=== PATIENT | female | born 1995 | race Caucasian/White ===

== ENCOUNTER 2017-10-16 16:35 | Emergency (ER) | payer SELFPAY ==
[~2017-10-16] VITALS: Ht 167.6 cm; Wt 104.5 kg
[~2017-10-16 16:35] MED LIST: TYLENOL PM EX-1 EACH PO; [UNRECOGNIZED DRUG - OTHER]
[2017-10-16] MEDS ORDERED: AUGMENTIN 875-1 EAC1 PO (17:29)
[2017-10-16] MEDS ORDERED: NIFEDIPINE (17:35)
[2017-10-16] MEDS ORDERED: CORTISPORIN OTI10 ML OT (18:16)
[2017-10-16 18:18] VITALS: BP 147/94
== END 2017-10-16 18:18 | disposition home or self-care (01) ==
LOC: ED 16:35
DX: H60.93 Unspecified otitis externa, bilateral (principal); F17.200 Nicotine dependence, unspecified, uncomplicated; I10 Essential (primary) hypertension

== ENCOUNTER 2018-03-11 17:55 | Emergency (ER) | payer MEDICAID ==
[~2018-03-11] VITALS: Ht 167.6 cm; Wt 102.7 kg
[~2018-03-11 17:55] MED LIST changes: -QUALITY CHOICE20 M1 PO; -SEPTRA DS 8001 TAB PO
[2018-03-11] MEDS ORDERED: QUALITY CHOICE20 M1 PO (19:48)
[2018-03-11] MEDS ORDERED: SEPTRA DS 8001 TAB PO (19:48)
[2018-03-11 20:00] VITALS: BP 141/91
== END 2018-03-11 20:00 | disposition home or self-care (01) ==
LOC: ED 17:55
DX: O90.89 Other complications of the puerperium, not elsewhere classified (principal); R10.11 Right upper quadrant pain; O86.20 Urinary tract infection following delivery, unspecified; R74.8 Abnormal levels of other serum enzymes

== ENCOUNTER → 2018-03-11 | Outpatient (CLI) | payer MEDICAID ==
[~2018-03-11] MED LIST changes: +AUGMENTIN 875-1 EAC1 PO; +CORTISPORIN OTI10 ML OT; +NIFEDIPINE; +QUALITY CHOICE20 M1 PO; +SEPTRA DS 8001 TAB PO
[2018-03-11 12:05] LABS: EOS # 0.2 (0.04-0.40); EOS % 5.6 % (1.0-5.0); HEMATOCRIT 40.4 % (37.0-47.0); HEMOGLOBIN 12.7 g/dL (12.5-16.0); LYMPH# 1.2 (1.50-4.00); MEAN CELL VOLUME 80 fl (78-100); MEAN CORPUSCULAR HEMOGLOBIN 25 pg (27-31); MEAN CORPUSCULAR HGB CONC 31 g/dL (33-37); MEAN PLATELET VOLUME 11.2 fl (7.4-10.4); MONO # 0.3 (0.20-0.80); NEU # 2.5 (1.40-6.50); PLATELET COUNT 373 K/mm3 (130-400); RED BLOOD COUNT 5.06 M/mm3 (4.10-5.30); RED CELL DISTRIBUTION WIDTH 14.7 % (11.5-14.5); WHITE BLOOD COUNT 4.3 K/mm3 (4.8-10.8)
[2018-03-11 12:11] LABS: ALBUMIN 4.1 g/dL (3.5-5.0); BUN/CREATININE RATIO 12.2 (6.0-26.0); CALCIUM 9.1 mg/dL (8.4-10.2); POTASSIUM 3.7 mmol/L (3.6-5.0); TOTAL BILIRUBIN 4.5 mg/dL (0.2-1.3); TOTAL PROTEIN 8.6 g/dL (6.3-8.2)
[2018-03-11 12:56] LABS: URINE APPEARANCE HAZY; URINE COLOR DARK YELLOW; URINE GLUCOSE NEGATIVE (NEGATIVE); URINE KETONE NEGATIVE (NEGATIVE); URINE PROTEIN(semi-quant) TRACE mg/dL (NEGATIVE)
[2018-03-11 12:57] LABS: URINE BILIRUBIN 3+ (NEGATIVE); URINE BLOOD 250 ery/uL (NEGATIVE); URINE LEUKOCYTE ESTERASE 2+ (NEGATIVE); URINE UROBILINOGEN NORMAL (NORMAL); URINE WBC 16-30 /hpf (0-3)
== END ==
LOC: LAB 11:36
PROVIDERS: Nurse Practitioner Primary Care
DX: R10.11 Right upper quadrant pain (principal)

== ENCOUNTER → 2020-02-28 | Outpatient (CLI) | payer MEDICAID ==
[2019-05-28 22:38] VITALS: BP 145/88
[~2020-02-28] MED LIST changes: +QUALITY CHOICE20 M1 PO; +SEPTRA DS 8001 TAB PO
== END ==
LOC: LAB 12:09
DX: R05 Cough (principal); R06.02 Shortness of breath; R51 Headache; Z20.828 Contact with and (suspected) exposure to other viral communicable diseases

== ENCOUNTER 2020-03-28 00:37 | Emergency (ER) | payer MEDICAID ==
[2019-05-28 22:38] VITALS: BP 145/88
== END 2020-03-28 00:47 | disposition left against medical advice (07) ==
LOC: ED 00:37
DX: Z72.89 Other problems related to lifestyle (principal)

== ENCOUNTER 2020-12-02 16:32 | Emergency (ER) | payer MEDICAID ==
[2020-12-02] MEDS ORDERED: LEVOTHYROXIN0.088 MG PO (17:33)
[2020-12-02] MEDS ORDERED: QUETIAPINE FUMA50 MG PO (17:33)
[2020-12-02] MEDS ORDERED: NORVASC 10MG10 MG PO (17:34)
[2020-12-02] MEDS ORDERED: ESCITALOPRAM20 MG PO (17:34)
[2020-12-02] MEDS ORDERED: ALBUTEROL2.5 MG/3 M IH (17:35)
[2020-12-02] MEDS ORDERED: PROAIR HFA0.09 MG/AC IH (17:36)
[2020-12-02] MEDS ORDERED: AUGMENTIN 875-1 EAC1 PO (18:44)
[2020-12-02] MEDS ORDERED: BACTRIM DS TAB1 EACH PO (18:44)
[2020-12-02 18:56] VITALS: BP 129/93
== END 2020-12-02 18:56 | disposition home or self-care (01) ==
LOC: ED 16:32
DX: N75.1 Abscess of Bartholin's gland (principal); I10 Essential (primary) hypertension; E03.9 Hypothyroidism, unspecified; J45.909 Unspecified asthma, uncomplicated; Z79.891 Long term (current) use of opiate analgesic; Z79.890 Hormone replacement therapy; Z79.51 Long term (current) use of inhaled steroids; Z79.899 Other long term (current) drug therapy

== ENCOUNTER 2021-03-08 20:08 | Emergency (ER) | payer MEDICAID ==
[~2021-03-08 20:08] MED LIST changes: +ALBUTEROL2.5 MG/3 M IH; +BACTRIM DS TAB1 EACH PO; +ESCITALOPRAM20 MG PO; +LEVOTHYROXIN0.088 MG PO; +NORVASC 10MG10 MG PO; +PROAIR HFA0.09 MG/AC IH; +QUETIAPINE FUMA50 MG PO
[2021-03-08 21:11] LABS: BASO # 0.01 (0.02-0.10); HEMATOCRIT 33.7 % (37.0-47.0); HEMOGLOBIN 11.2 g/dL (12.5-16.0); LYMPH# 0.74 (1.50-4.00); MEAN CELL VOLUME 80 fl (78-100); MEAN CORPUSCULAR HEMOGLOBIN 27 pg (27-31); MEAN CORPUSCULAR HGB CONC 33 g/dL (33-37); MEAN PLATELET VOLUME 11.2 fl (7.4-10.4); MONO # 0.11 (0.20-0.80); NEU # 3.02 (1.40-6.50); PLATELET COUNT 275 K/mm3 (130-400); RED BLOOD COUNT 4.21 M/mm3 (4.10-5.30); RED CELL DISTRIBUTION WIDTH 13.3 % (11.5-14.5); WHITE BLOOD COUNT 3.9 K/mm3 (4.8-10.8)
[2021-03-08 21:18] LABS: ALBUMIN 4.1 g/dL (3.5-5.0); SODIUM 139 mmol/L (136-145)
[2021-03-08 21:19] LABS: CALCIUM 9.1 mg/dL (8.3-10.5)
[2021-03-08 21:20] LABS: GLUCOSE 153 mg/dL (65-105); TOTAL PROTEIN 7.2 g/dL (6.4-8.3)
[2021-03-08 21:21] LABS: CARBON DIOXIDE 26 mmol/L (22-29)
[2021-03-08 21:22] LABS: TOTAL BILIRUBIN 0.4 mg/dL (0.2-1.2)
[2021-03-08 21:23] LABS: POTASSIUM 2.6 mmol/L (3.5-5.1)
[2021-03-08 21:24] LABS: ALCOHOL IN-HOUSE < 10 mg/dL (<10)
[2021-03-08 21:25] LABS: AST-SGOT 46 U/L (5-34)
[2021-03-08 21:27] LABS: ALT/SGPT 46 U/L (0-55)
[2021-03-08 21:29] LABS: ACETAMINOPHEN < 1 ug/mL
[2021-03-09 01:20] VITALS: BP 126/79
== END 2021-03-09 01:20 | disposition short-term general hospital (02) ==
LOC: ED 20:08
PROVIDERS: Nurse Practitioner Family
DX: T43.592A Poisoning by other antipsychotics and neuroleptics, intentional self-harm, initial encounter (principal)
CPT/HCPCS: J3480; J7030

== ENCOUNTER 2021-08-01 17:13 | Emergency (ER) | payer MEDICAID ==
[~2021-08-01] VITALS: Ht 170.2 cm; Wt 113.6 kg
[2021-08-01 18:32] LABS: BASO # 0.06 K/mm3 (0.02-0.10); EOS # 0.33 K/mm3 (0.04-0.40); HEMATOCRIT 33.4 % (37.0-47.0); HEMOGLOBIN 11.1 g/dL (12.5-16.0); LYMPH# 2.43 K/mm3 (1.50-4.00); MEAN CELL VOLUME 79 fl (78-100); MEAN CORPUSCULAR HEMOGLOBIN 26 pg (27-31); MEAN CORPUSCULAR HGB CONC 33 g/dL (33-37); MONO # 0.67 K/mm3 (0.20-0.80); NEU # 4.74 K/mm3 (1.40-6.50); PLATELET COUNT 273 K/mm3 (130-400); RED BLOOD COUNT 4.21 M/mm3 (4.10-5.30); RED CELL DISTRIBUTION WIDTH 14.6 % (11.5-14.5); WHITE BLOOD COUNT 8.2 K/mm3 (4.8-10.8)
[2021-08-02 02:00] VITALS: BP 123/70
[2021-08-02 14:46] LABS: URINE APPEARANCE CLOUDY; URINE COLOR YELLOW; URINE PROTEIN(semi-quant) TRACE mg/dL (NEGATIVE)
[2021-08-02 14:47] LABS: URINE BILIRUBIN NEGATIVE (NEGATIVE); URINE BLOOD TRACE (NEGATIVE); URINE GLUCOSE NEGATIVE (NEGATIVE); URINE KETONE 2+ (NEGATIVE); URINE LEUKOCYTE ESTERASE NEGATIVE (NEGATIVE); URINE NITRATE NEGATIVE (NEGATIVE); URINE UROBILINOGEN NORMAL (NORMAL); URINE WBC 0-1 /hpf (0-3)
== END 2021-08-02 13:30 | disposition left against medical advice (07) ==
LOC: ED 17:13
PROVIDERS: Family Medicine
DX: J45.909 Unspecified asthma, uncomplicated (principal); F15.90 Other stimulant use, unspecified, uncomplicated; F17.210 Nicotine dependence, cigarettes, uncomplicated; I10 Essential (primary) hypertension; E03.9 Hypothyroidism, unspecified; Z20.822 Contact with and (suspected) exposure to COVID-19; Z79.890 Hormone replacement therapy; Z79.899 Other long term (current) drug therapy

== ENCOUNTER → 2021-08-25 | Outpatient (CLI) | payer MEDICAID | LOC: LAB 17:06 | DX: Z20.822 Contact with and (suspected) exposure to COVID-19 (principal) ==

== ENCOUNTER 2022-02-17 12:38 | Emergency (ER) | payer MEDICAID ==
[~2022-02-17] VITALS: Ht 167.6 cm; Wt 92.2 kg
[2022-02-17] MEDS ORDERED: PROAIR HFA0.09 MG/AC IH (13:21)
[2022-02-17] MEDS ORDERED: PREDNISONE20 M1 PO (13:21)
[2022-02-17] MEDS ORDERED: NEB INH (13:21)
[2022-02-17] MEDS ORDERED: ALBUTEROL2.5 MG/3 M IH (13:21)
[2022-02-17 13:42] VITALS: BP 109/75
== END 2022-02-17 13:42 | disposition home or self-care (01) ==
LOC: ED 12:38
DX: J45.901 Unspecified asthma with (acute) exacerbation (principal); F17.210 Nicotine dependence, cigarettes, uncomplicated